=== PATIENT | male | born 1980 | race African-American/Black ===

== ENCOUNTER 2017-07-14 01:55 | Emergency (ER) | payer OTHER ==
[~2017-07-14] VITALS: Ht 188 cm; Wt 111.7 kg
[2017-07-14 04:00] LABS: EOSINOPHIL (%) 0.5 % (0-5); HEMATOCRIT 42.4 % (38.0-50.0); IMMATURE GRANULOCYTE (%) 0.3 % (0.0-0.7); INSTRUMENT ABS NEUTROPHIL CT 4.8 K/uL; LYMPHOCYTE COUNT 1.7 K/uL (1.0-2.8); MCHC 32.1 G/DL (30.0-36.0); MCV 78.1 FL (86-99); MEAN PLAT.VOLUME 10.8 uM^3 (9.0-12.4); MONOCYTE (%) 10.8 % (3-12); MONOCYTE COUNT 0.8 K/uL (0-0.8); NEUTROPHIL (%) 65.2 % (45-76); NEUTROPHIL COUNT 4.8 K/uL (1.8-6.4); PLATELET COUNT 205 K/uL (156-360); RBC DIS.WIDTH-CV 13.2 % (11.8-14.6); RBC DIS.WIDTH-SD 37.7 % (39-53); RED BLOOD COUNT 5.43 M/uL (4.00-5.50); WHITE BLOOD COUNT 7.4 K/uL (4.1-10.2)
[2017-07-14 04:08] LABS: CHLORIDE 107 mEq/L (99-109); POTASSIUM 3.7 mEq/L (3.7-5.4); SODIUM 141 mEq/L (136-147)
[2017-07-14 04:10] LABS: GLUCOSE 96 mg/dL (70-99)
[2017-07-14 04:11] LABS: ANION GAP 11 MEQ/L (2-14)
[2017-07-14 04:14] LABS: GFR ESTIMATE (CALCULATED) > 59 mL/min/; UREA NITROGEN (BUN) 15 mg/dL (9-23)
[2017-07-14] MEDS ORDERED: PERCOCET 5/31 TABLET PO (04:26)
[2017-07-14 04:43] VITALS: BP 132/76
== END 2017-07-14 04:43 | disposition home or self-care (01) ==
LOC: EXP 01:55 → EME 01:55 → EXP 04:43
PROVIDERS: Emergency Medicine
DX: S02.40CA Maxillary fracture, right side, initial encounter for closed fracture (principal); M54.2 Cervicalgia; Y04.8XXA Assault by other bodily force, initial encounter; Y92.199 Unspecified place in other specified residential institution as the place of occurrence of the external cause; Y99.0 Civilian activity done for income or pay; R42 Dizziness and giddiness
CPT/HCPCS: 70450; 70486; 71250; 72125; 72128; 72131; 73080; 74176; 80048; 85025; 99281; 99284